=== PATIENT | female | born 1995 ===

== ENCOUNTER 2020-05-14 18:00 | Outpatient (CLI) | payer BC | END 2020-05-14 18:01 | disposition home or self-care (01) | LOC: SLEEPLAB 18:00 | PROVIDERS: ATTEND Otolaryngology Plastic Surgery within the Head & Neck | DX: R06.83 Snoring (principal); G47.33 Obstructive sleep apnea (adult) (pediatric); J02.9 Acute pharyngitis, unspecified; K21.9 Gastro-esophageal reflux disease without esophagitis; G47.00 Insomnia, unspecified; E66.9 Obesity, unspecified; Z68.32 Body mass index [BMI] 32.0-32.9, adult | CPT/HCPCS: 95806 ==